=== PATIENT | female | born 1955 | race Two or more races ===

== ENCOUNTER 2022-09-16 17:45 | Emergency (ER) | payer OTHER ==
[~2022-09-16] VITALS: Ht 160 cm; Wt 84.4 kg
[2022-09-16] MEDS ORDERED: ECOTRIN81 MG (18:31)
[2022-09-16] MEDS ORDERED: ATORVASTATIN CA20 MG PO (18:31)
== END 2022-09-16 19:54 | disposition home or self-care (01) ==
LOC: ER 17:45
DX: S52.92XA Unspecified fracture of left forearm, initial encounter for closed fracture (principal); W18.39XA Other fall on same level, initial encounter; Y93.89 Activity, other specified; Y92.59 Other trade areas as the place of occurrence of the external cause; Y99.8 Other external cause status